=== PATIENT | female | born 1975 | race African-American/Black ===

== ENCOUNTER 2021-05-26 04:15 | Inpatient (IN) | payer OTHER ==
[2021-05-25 08:07] VITALS: BMI 24.8
[2021-05-26] MEDS ORDERED: BUPIVACAINE LIPOSOME/PF (EXPAREL) 266 MG/20 ML VIAL ONE (07:19)
[2021-05-26] MEDS ORDERED: BUPIVACAINE HCL 100 ML ONE (07:20)
[2021-05-26] MEDS ORDERED: MIDAZOLAM HCL 2 MG/2 ML SINGLE DOSE VIAL ONE ×3 (07:21→07:45)
[2021-05-26] MEDS ORDERED: DESFLURANE GAS 240 ML BOTTLE IH ONE (07:44)
[2021-05-26] MEDS ORDERED: ROCURONIUM BROMIDE 50 MG/5 ML SYRINGE ONE (07:45)
[2021-05-26] MEDS ORDERED: SUCCINYLCHOLINE CHLORIDE 200 MG/10 ML SYRINGE ONE (07:45)
[2021-05-26] MEDS ORDERED: PROPOFOL 20 ML ONE ×2 (07:45)
[2021-05-26] MEDS ORDERED: fentaNYL CITRATE 250 MCG/5 ML VIAL ONE (07:45)
[2021-05-26] MEDS ORDERED: CEFAZOLIN 2 GM/D5W 2 GM/50 ML ML IVPB ONE (08:05)
[2021-05-26] MEDS ORDERED: ceFAZolin SODIUM 1 GM VIAL ONE ×2 (08:26)
[2021-05-26] MEDS ORDERED: ONDANSETRON 4 MG/2 ML VIAL ONE (08:27)
[2021-05-26] MEDS ORDERED: DEXAMETHASONE SOD PHOSPHATE 4 MG/1 ML VIAL ONE (08:27)
[2021-05-26] MEDS ORDERED: ePHEDrine SULFATE 50 MG/1 ML AMPULE ONE (08:41)
[2021-05-26] MEDS ORDERED: oxyCODONE HCL 5 MG TABLET PO PRN ×2 (08:58→10:12)
[2021-05-26] MEDS ORDERED: ACETAMINOPHEN 1000 MG/100 ML VIAL (NON FORMULARY) IVPB ONE (08:58)
[2021-05-26] MEDS ORDERED: ONDANSETRON 4 MG/2 ML VIAL IVPUSH PRN (08:58)
[2021-05-26] MEDS ORDERED: LACTATED RINGERS SOLUTION 1,000 ML IV SCH (09:00)
[2021-05-26] MEDS ORDERED: NEOSTIGMINE METHYLSULFATE 0.5 MG/1 ML - 10 ML MDV ONE (09:47)
[2021-05-26] MEDS ORDERED: GLYCOPYRROLATE 0.2 MG/1 ML VIAL ONE (09:47)
[2021-05-26] MEDS ORDERED: ACETAMINOPHEN INJECTION 100 ML IVPB ONE (10:36)
[2021-05-26] MEDS: IBUPROFEN 800 MG/8 ML IJ IVPB PRN ×2 (12:22→23:53)
[2021-05-26] MEDS: ACETAMINOPHEN 325 MG TABLET (FP) PO SCH ×3 (13:06→23:52)
[2021-05-26] MEDS: oxyCODONE HCL 5 MG TABLET PO PRN ×3 (14:01→21:30)
[2021-05-26] MEDS: CEFAZOLIN 2 GM/D5W 2 GM/50 ML ML IVPB SCH (18:18)
[2021-05-26] MEDS ORDERED: ONDANSETRON 4 MG/2 ML VIAL IVPUSH ONE (18:39)
[2021-05-26] MEDS: ACETAMINOPHEN 325 MG TABLET (FP) PO PRN (21:27)
[2021-05-27] MEDS: CEFAZOLIN 2 GM/D5W 2 GM/50 ML ML IVPB SCH (02:04)
[2021-05-27] MEDS: ACETAMINOPHEN 325 MG TABLET (FP) PO SCH ×4 (02:46→21:49)
[2021-05-27 08:17] LABS: BASO % 0.3 % (0-2.0); EOS % 0.4 % (0-4.5); HEMATOCRIT 25.1 % (32.4-45.2); LYMPH % 12.3 % (8-40); MCH 27.2 pg (25.7-33.7); MCHC 32.1 g/dl (32.0-36.0); MEAN CELL VOLUME 84.7 fl (80-96); MEAN PLT VOLUME 7.8 fl (7.5-11.1); MONO % 9.4 % (3.8-10.2); NEUT % 77.6 % (42.8-82.8); PLATELET COUNT 272 10^3/uL (134-434); RBC 2.96 M/mm3 (3.60-5.2); RDW 23.4 % (11.6-15.6); WHITE BLOOD COUNT 9.6 K/mm3 (4.0-10.0)
[2021-05-27] MEDS: oxyCODONE HCL 5 MG TABLET PO PRN ×3 (08:22→17:38)
[2021-05-27] MEDS: ACETAMINOPHEN 325 MG TABLET (FP) PO PRN (17:39)
[2021-05-28] MEDS: ACETAMINOPHEN 325 MG TABLET (FP) PO SCH ×2 (03:58→09:53)
[2021-05-28] MEDS: oxyCODONE HCL 5 MG TABLET PO PRN (08:53)
[2021-05-28 10:22] VITALS: BP 134/81; PULSE 80; TEMP 98.3
[2021-05-28] MEDS: ACETAMINOPHEN 325 MG TABLET (FP) PO PRN (12:12)
== END 2021-05-28 14:00 | disposition home or self-care (01) | DRG 743 ==
LOC: J2C 04:15 → J3W 12:14
PROVIDERS: ADMIT Obstetrics & Gynecology; ATTEND Obstetrics & Gynecology
PROC: 0UT70ZZ Resection of Bilateral Fallopian Tubes, Open Approach (ICD-10-PCS; 2021-05-26)
PROC: 0UB97ZZ Excision of Uterus, Via Natural or Artificial Opening (ICD-10-PCS; 2021-05-26)
PROC: 0UT90ZZ Resection of Uterus, Open Approach (ICD-10-PCS; principal; 2021-05-26 08:00)
PROC: 0UT20ZZ Resection of Bilateral Ovaries, Open Approach (ICD-10-PCS; 2021-05-26 08:00)
DX: D25.9 Leiomyoma of uterus, unspecified (principal); N92.0 Excessive and frequent menstruation with regular cycle
CPT/HCPCS: 36415; 85025; 94010; 94760; J0131